=== PATIENT | female | born 1990 | race African-American/Black ===

== ENCOUNTER 2016-06-28 10:10 | Emergency (ER) | payer MEDICAID ==
[~2016-06-28] VITALS: Ht 167.6 cm; Wt 122.5 kg
[2016-06-28 10:41] VITALS: BP 161/101
[2016-06-28] MEDS ORDERED: LORazepam 2MG/ML-1ML VIAL IM ONE (11:00)
== END 2016-06-28 11:19 | disposition home or self-care (01) ==
LOC: EDBD 10:10 → ER 10:14
DX: F41.9 Anxiety disorder, unspecified (principal)
CPT/HCPCS: 96372; 99284; J2060

== ENCOUNTER 2019-12-03 07:45 | Observation (INO) | payer MEDICAID ==
[2019-12-03] MEDS ORDERED: ASPI-543 PO (08:23)
[2019-12-03] MEDS ORDERED: PREN27TA7 OR (08:24)
[2019-12-03 09:09] LABS: Alcohol, Urine < 3.0 mg/dL (0-10); Amphetamine Screen, Urine NEGATIVE (NEGATIVE); Barbiturate Scree,Urine NEGATIVE (NEGATIVE); Benzodiazephine Screen, Urine NEGATIVE (NEGATIVE); Cannabinoid Screen, Urine POSITIVE (NEGATIVE); Cocaine Screen, Urine NEGATIVE (NEGATIVE); Opiate Scree,Urine NEGATIVE (NEGATIVE); Phencyclidine Screen, Urine NEGATIVE (NEGATIVE)
== END 2019-12-03 09:54 | disposition home or self-care (01) ==
LOC: LDRP 07:45
PROVIDERS: ADMIT Obstetrics & Gynecology; ATTEND Obstetrics & Gynecology
DX: O60.02 Preterm labor without delivery, second trimester (principal); Z3A.24 24 weeks gestation of pregnancy; Z79.899 Other long term (current) drug therapy
CPT/HCPCS: 59025; 76815; 80307; 81002; G0378